=== PATIENT | female | born 1985 | race Caucasian/White ===

== ENCOUNTER 2017-02-27 20:50 | Emergency (ER) | payer MEDICAID ==
[~2017-02-27] VITALS: Ht 149.9 cm; Wt 69.4 kg
[~2017-02-27 20:50] MED LIST: [UNRECOGNIZED DRUG - CODE] PO
[2017-02-27 21:01] VITALS: BP 130/90
--- NOTE | 2017-02-27 22:08 | NUR ---
AMBULATED TO ER OF1
--- NOTE | 2017-02-27 22:09 | NUR ---
Patient being evaluated by physician at [facility].
--- NOTE | 2017-02-27 22:15 | NUR ---
31/F c/o swelling to right cheek x2 days. Denies pain. Denies N/V/D. Denies s/s of UTI. VSS.
[2017-02-28 00:05] VITALS: BP 122/73
== END 2017-02-28 00:05 | disposition home or self-care (01) ==
LOC: MED 20:50
DX: L03.211 Cellulitis of face (principal); R03.0 Elevated blood-pressure reading, without diagnosis of hypertension; J45.909 Unspecified asthma, uncomplicated; M19.90 Unspecified osteoarthritis, unspecified site; Z79.899 Other long term (current) drug therapy
CPT/HCPCS: 70486; 81025; 99284

== ENCOUNTER 2018-02-19 20:15 | Emergency (ER) | payer MEDICAID ==
[~2018-02-19] VITALS: Ht 149.9 cm; Wt 74.8 kg
[2018-02-19 20:19] VITALS: BP 132/78
--- NOTE | 2018-02-19 20:22 | NUR ---
pt sent back to [facility]. ambulated even steady gait.
--- NOTE | 2018-02-19 20:55 | NUR ---
PT AMBULATED TO ER BED 9.
--- NOTE | 2018-02-19 20:58 | NUR ---
PATIENT PRESENTS TO ED WITH HEADACHE X2 DAYS. PATIENT STATES PAIN 5/10 AT THIS TIME WORSE WITH LIGHT AND NOISE. PATIENT STATES SHE HAS A HISTORY OF MIGRAINES. PATIENT IS A&OX4, PERRLA, AMBULATORY. NO SIGNS OR SYMPTOMS OF ACUTE DISTRESS NOTED AT THIS TIME. ER MD MADE AWARE OF PATIENT STATUS. WILL CONTINUE TO MONITOR.
[2018-02-19] MEDS ORDERED: SUMAtriptan 6 MG/0.5 ML VIAL SUBQ ONE (21:15)
[2018-02-19] MEDS ORDERED: KETOROLAC 30 MG/ML VIAL IM ONE (21:25)
[2018-02-19 22:09] VITALS: BP 129/79
--- NOTE | 2018-02-19 22:11 | NUR ---
Patient discharged with v/s stable. Written and verbal after care instructions given and explained. Patient alert, oriented and verbalized understanding of instructions. Ambulatory with steady gait. All questions addressed prior to discharge. ID band removed. Patient advised to follow up with PMD. Rx of IMITREX given. Patient educated on indication of medication including possible reaction and side effects. Opportunity to ask questions provided and answered.
== END 2018-02-19 22:10 | disposition home or self-care (01) ==
LOC: MED 20:15
DX: G43.909 Migraine, unspecified, not intractable, without status migrainosus (principal); J45.909 Unspecified asthma, uncomplicated
CPT/HCPCS: 96372; 99284; J1885; J3030

== ENCOUNTER 2021-07-23 15:36 | Emergency (ER) | payer MEDICAID ==
[~2021-07-23] VITALS: Ht 149.9 cm; Wt 73.5 kg
[2021-07-23 16:31] VITALS: BP 140/82
[2021-07-23] MEDS ORDERED: KETOROLAC 30 MG/ML VIAL IM ONE (17:15)
[2021-07-23] MEDS ORDERED: ACET-8386 PO (18:38)
[2021-07-23] MEDS ORDERED: CEPH-588 PO (18:38)
[2021-07-23] MEDS ORDERED: IBUP-2213 PO (18:38)
[2021-07-23 19:53] VITALS: BP 140/82
--- NOTE | 2021-07-23 19:53 | NUR ---
Patient discharged with v/s stable. Written and verbal after care instructions given and explained. Patient alert, oriented and verbalized understanding of instructions. Ambulatory with steady gait. All questions addressed prior to discharge. ID band removed. Patient advised to follow up with PMD. Rx of keflex, ibuprofen, and hydrocodon-acetaminophen 5-325 given. Patient educated on indication of medication including possible reaction and side effects. Opportunity to ask questions provided and answered.
== END 2021-07-23 19:53 | disposition home or self-care (01) ==
LOC: MED 15:36
DX: M54.31 Sciatica, right side (principal); J06.9 Acute upper respiratory infection, unspecified; R03.0 Elevated blood-pressure reading, without diagnosis of hypertension; J45.909 Unspecified asthma, uncomplicated
CPT/HCPCS: 72100; 81002; 81025; 96372; 99283; J1885

== ENCOUNTER 2023-02-16 06:55 | Emergency (ER) | payer MEDICAID ==
[~2023-02-16] VITALS: Ht 149.9 cm; Wt 75.3 kg
[~2023-02-16 06:55] MED LIST changes: +ACET-8905 PO; +CEPH-588 PO; +IBUP-2213 PO
[2023-02-16 07:00] VITALS: BP 156/90; PULSE 91; RESP 18; TEMP 96.8; O2SAT 100
[2023-02-16] MEDS ORDERED: NITR100C7 PO (08:13)
[2023-02-16] MEDS ORDERED: PYR100 PO (08:13)
[2023-02-16] MEDS ORDERED: IBUP-2213 PO (08:13)
[2023-02-16 08:40] VITALS: BP 140/88; PULSE 88; RESP 18; TEMP 97.8; O2SAT 100
--- NOTE | 2023-02-16 08:40 | NUR ---
Patient discharged with v/s stable. Written and verbal after care instructions FOR UTI given and explained. Patient alert, oriented and verbalized understanding of instructions. Ambulatory with steady gait. All questions addressed prior to discharge. ID band removed. Patient advised to follow up with PMD. Rx of IBURPROFEN,PYRIDIUM AND MACROBID given. Opportunity to ask questions provided and answered.
== END 2023-02-16 08:40 | disposition home or self-care (01) ==
LOC: MED 06:55
DX: N39.0 Urinary tract infection, site not specified (principal); J45.909 Unspecified asthma, uncomplicated; G43.909 Migraine, unspecified, not intractable, without status migrainosus; Z79.899 Other long term (current) drug therapy
CPT/HCPCS: 81002; 81025; 87086; 99283

== ENCOUNTER 2024-03-21 20:56 | Emergency (ER) | payer MEDICAID ==
[~2024-03-21] VITALS: Ht 149.9 cm; Wt 76.2 kg
[~2024-03-21 20:56] MED LIST changes: +NITR100C7 PO; +PYR100 PO
[2024-03-21 21:40] VITALS: BP 152/103; PULSE 92; RESP 20; TEMP 98.1; O2SAT 97
[2024-03-22] MEDS: IBUPROFEN 600 MG TAB PO ONE (01:28)
[2024-03-22 01:43] LABS: BASOPHILS # (AUTO) 0.1 K/uL (0.00-0.22); BASOPHILS % (AUTO) 0.6 % (0.0-2.0); EOSINOPHILS # (AUTO) 0.1 K/uL (0-0.4); HEMATOCRIT 45.9 % (36-48); HEMOGLOBIN 15.9 g/dL (12.0-16.0); MEAN CORPUSCULAR HEMOGLOBIN 30 pg (27-31); MEAN CORPUSCULAR HGB CONC 35 g/dL (33-37); MEAN CORPUSCULAR VOLUME 87.1 fL (80-94); MONOCYTES # (AUTO) 0.5 K/uL (0.8-1.0); MONOCYTES % (AUTO) 5.4 % (1.7-9.3); NEUTROPHILS # (AUTO) 4.8 K/uL (1.8-7.7); PLATELET COUNT (AUTO) 437 K/uL (140-450); RED BLOOD CELL COUNT(AUTO) 5.27 MIL/uL (4.20-5.40); RED CELL DISTRIBUTION WIDTH 13.2 % (11.6-13.7); WHITE BLOOD COUNT (AUTO) 9.5 K/uL (4.8-10.8)
[2024-03-22] MEDS: ENALAPRILAT 2.5 MG/2 ML VIAL IVP ONE (01:43)
[2024-03-22 01:52] LABS: APPEARANCE,URINE CLEAR (CLEAR); BILIRUBIN,URINE NEGATIVE (NEGATIVE); BLOOD, URINE 1+ (NEGATIVE); COLOR,URINE YELLOW (YELLOW); LEUKOCYTE ESTERASE ,URINE TRACE (NEGATIVE); NITRITE, URINE NEGATIVE (NEGATIVE); PROTEIN,URINE NEGATIVE (NEGATIVE); UGLUCOSE NEGATIVE (NEGATIVE); UROBILINOGEN,URINE 0.2 EU/dL (0.2 - 1)
[2024-03-22 01:55] LABS: ANION GAP 12.6 (8-16); CALCIUM 9.1 mg/dL (8.5-10.1); CARBON DIOXIDE 27.9 mmol/L (21-32); CREATININE 0.9 mg/dL (0.6-1.3); POTASSIUM 3.5 mmol/L (3.5-5.1)
[2024-03-22 01:57] LABS: BACTERIA,URINE 10-30 (MOD) /HPF (None Seen); MUCUS,URINE 1+ /LPF (None Seen); RBC,URINE 0-5 /HPF (0-5); SQUAMOUS EPITHELIAL CELL,UR 4-10 (MOD) /LPF (0-3 (FEW))
[2024-03-22 02:09] VITALS: O2SAT 97
[2024-03-22] MEDS ORDERED: LOSA50TA66 PO (05:00)
[2024-03-22 05:12] VITALS: BP 120/79; PULSE 90; RESP 20; TEMP 98.1; O2SAT 97
== END 2024-03-22 05:11 | disposition home or self-care (01) ==
LOC: MED 20:56
DX: I10 Essential (primary) hypertension (principal); R51.9 Headache, unspecified; Z90.49 Acquired absence of other specified parts of digestive tract; Z98.890 Other specified postprocedural states; Z79.899 Other long term (current) drug therapy
CPT/HCPCS: 36415; 80048; 81001; 81025; 84443; 85025; 87086; 93005; 96374; 99284; J3490